=== PATIENT | male | born 1965 | race Caucasian/White ===

== ENCOUNTER 2016-08-25 16:45 | Emergency (ER) | payer OTHER ==
[~2016-08-25] VITALS: Ht 182.9 cm; Wt 100.0 kg
[2016-08-25 16:46] VITALS: BP 170/92; PULSE 73; RESP 14; TEMP 98.1; O2SAT 98
[2016-08-25 22:52] VITALS: BP 199/98; PULSE 65; RESP 18; O2SAT 100
[2016-08-25] MEDS ORDERED: DOXA1TAB35 PO (22:58)
[2016-08-25] MEDS ORDERED: POTA10TA8 PO (22:58)
[2016-08-25] MEDS ORDERED: AMAN100C18 PO (22:58)
[2016-08-25] MEDS ORDERED: LISI-515 PO (22:58)
[2016-08-25] MEDS ORDERED: METF500T PO (22:58)
[2016-08-25] MEDS ORDERED: GLIP5TAB8 PO (22:58)
[2016-08-25] MEDS ORDERED: SERT-132 PO (22:58)
[2016-08-25] MEDS ORDERED: ACETAMINOPHEN 500 MG CPLT PO ONE (23:30)
[2016-08-25 23:56] LABS: AUTOMATED NEUTROPHIL # 4.4 TH/MM3 (1.8-7.7); BASOPHIL # 0.1 TH/MM3 (0-0.2); BASOPHIL % 1.3 % (0.0-2.0); EOSINOPHIL # 0.4 TH/MM3 (0-0.4); EOSINOPHIL % 5.7 % (0.0-4.0); HEMATOCRIT 39.9 % (39.0-51.0); HEMO FLAGS DIFF FINAL; LYMPH % 28.6 % (9.0-44.0); LYMPHOCYTE # 2.2 TH/MM3 (1.0-4.8); MEAN CELL VOLUME 81.8 FL (80.0-100.0); MEAN CORPUSCULAR HEMOGLOBIN 28.3 PG (27.0-34.0); MEAN CORPUSCULAR HGB CONC 34.6 % (32.0-36.0); MONO % 7.3 % (0.0-8.0); NEUT % 57.1 % (16.0-70.0); PLATELET COUNT 242 TH/MM3 (150-450); RED BLOOD COUNT 4.88 MIL/MM3 (4.50-5.90); RED CELL DISTRIBUTION WIDTH 14.5 % (11.6-17.2); WHITE BLOOD COUNT 7.7 TH/MM3 (4.0-11.0)
[2016-08-26 00:10] LABS: ALT (GPT) 36 U/L (12-78); ANION GAP 7 MEQ/L (5-15); AST (GOT) 17 U/L (15-37); BICARBONATE 28.8 MEQ/L (21.0-32.0); BLOOD UREA NITROGEN 13 MG/DL (7-18); CHLORIDE 104 MEQ/L (98-107); GLOMERULAR FILTRATION RATE 84 ML/MIN (>89); POTASSIUM 3.5 MEQ/L (3.5-5.1); SODIUM (NA) 140 MEQ/L (136-145)
[2016-08-26 00:12] LABS: ALKALINE PHOSPHATASE 124 U/L (45-117); TOTAL BILIRUBIN ADULT 0.3 MG/DL (0.2-1.0)
[2016-08-26] MEDS ORDERED: CLINDAMYCIN INJ 600 MG in SODIUM CHLORIDE 0.9% INJ 100 ML IV ONE (00:30)
--- NOTE | 2016-08-26 00:35 | RADRPT ---
EXAM DATE/TIME: 08/25/2016 23:47 [place] COMPARISON: No previous studies available for comparison. INDICATIONS : Patient complains of pain in 2nd-5th MTPJs. Also complains of some pain in 5th digit. No known injury . MEDICAL HISTORY : None. SURGICAL HISTORY : None. ENCOUNTER: Initial ACUITY: 1 day PAIN SCORE: 3/10 LOCATION: Right Foot FINDINGS: Two view examination of the right foot demonstrates no soft tissue swelling, dislocation, or fracture . The calcaneus is intact. Moderate-sized retrocalcaneal spur. Bony mineralization is normal. CONCLUSION: Negative exam other than prominent retrocalcaneal spur. Rico Spring MD on August 26, 2016 at 0:33 Board Certified Radiologist. This report was verified electronically.
[2016-08-26] MEDS ORDERED: CLIN1CAP6 PO (00:43)
--- NOTE | 2016-08-26 00:44 | PD ---
HPI Chief Complaint: Skin Problem Time Seen by Provider: 23:21 Travel History International Travel<30 days: No Contact w/Intl Traveler<30days: No Traveled to known affect area: No History of Present Illness HPI This is a 51-year-old male who presents to the emergency department with a history of diabetes with one week of pain and redness involving his right foot mostly around his toes. He went to the [facility] today and was sent here by the nurse for concern for an infection. He denies any fevers or chills. He's been taking Tylenol for pain and it helps for about 2 hours and then pain worsens. It has become difficult for him to walk on his foot. He doesn't follow with the venereal disease investigator. [facility] Past Medical History Depression: Yes Cardiovascular Problems: Yes (HTN) Diabetes: Yes Patient Takes Glucophage: Yes Diminished Hearing: No Hypertension: Yes Social History Alcohol Use: Yes (RARELY) Tobacco Use: No Substance Use: No Allergies-Medications (Allergen,Severity, Reaction): Coded Allergies: No Known Allergies (Unverified , 08/25/16) Reported Meds & Prescriptions Reported Meds & Active Scripts Active Reported Sertraline (Sertraline HCl) 50 Mg Tab 75 Mg PO DAILY Potassium Chloride CR (Potassium Chloride) 10 Meq Tab 10 Meq PO DAILY Metformin (Metformin HCl) 500 Mg Tab 500 Mg PO DAILY With a meal Lisinopril 20 Mg Tab 20 Mg PO DAILY Glipizide 5 Mg Tab 5 Mg PO BIDAC Take 30 minutes before a meal Doxazosin (Doxazosin Mesylate) 2 Mg Tab 2 Mg PO BID Amantadine (Amantadine HCl) 100 Mg Cap 100 Mg PO BID Review of Systems Except as stated in HPI: all other systems reviewed are Neg Physical Exam Narrative GENERAL:Well appearing, no acute distress SKIN: Erythema and warmth of the distal base of the right foot including the first and third toes with no obvious ulceration, abscess or drainage. HEAD: Atraumatic. Normocephalic. EYES: Pupils equal and round. No injection or drainage. ENT: Moist mucous membranes NECK: Trachea midline. CARDIOVASCULAR: Regular rate and rhythm. No murmur appreciated. RESPIRATORY: Clear to auscultation. Breath sounds equal bilaterally. GASTROINTESTINAL: Abdomen soft, non-tender, nondistended. MUSCULOSKELETAL: No obvious deformities. NEUROLOGICAL: Awake and alert. No obvious cranial nerve deficits. Moving all extremities. PSYCHIATRIC: Appropriate mood and affect; insight and judgment normal. Data Data Last Documented VS Vital Signs Date Time Temp Pulse Resp B/P Pulse Ox O2 Delivery O2 Flow Rate FiO2 08/25/16 22:52 65 18 199/98 100 Room Air 08/25/16 16:46 98.1 Orders Complete Blood Count With Diff (08/25/16 23:27) Comprehensive Metabolic Panel (08/25/16 23:27) ^ Insert Iv (08/25/16 23:27) [place] Sedimentation Rate (08/25/16 23:27) C-Reactive Protein (Crp) (08/25/16 23:27) Foot, Limited (2vws) (08/25/16 ) Acetaminophen (Tylenol) (08/25/16 23:30) [place] Sedimentation Rate (08/26/16 00:06) Clindamycin Inj (Cleocin Inj) (08/26/16 00:30) Labs Laboratory Tests Test 08/25/16 23:40 White Blood Count 7.7 TH/MM3 Red Blood Count 4.88 MIL/MM3 Hemoglobin 13.8 GM/DL Hematocrit 39.9 % Mean Corpuscular Volume 81.8 FL Mean Corpuscular Hemoglobin 28.3 PG Mean Corpuscular Hemoglobin 34.6 % Concent Red Cell Distribution Width 14.5 % Platelet Count 242 TH/MM3 Mean Platelet Volume 6.5 FL Neutrophils (%) (Auto) 57.1 % Lymphocytes (%) (Auto) 28.6 % Monocytes (%) (Auto) 7.3 % Eosinophils (%) (Auto) 5.7 % Basophils (%) (Auto) 1.3 % Neutrophils # (Auto) 4.4 TH/MM3 Lymphocytes # (Auto) 2.2 TH/MM3 Monocytes # (Auto) 0.6 TH/MM3 Eosinophils # (Auto) 0.4 TH/MM3 Basophils # (Auto) 0.1 TH/MM3 CBC Comment DIFF FINAL Differential Comment Sodium Level 140 MEQ/L Potassium Level 3.5 MEQ/L Chloride Level 104 MEQ/L Carbon Dioxide Level 28.8 MEQ/L Anion Gap 7 MEQ/L Blood Urea Nitrogen 13 MG/DL Creatinine 0.94 MG/DL Estimat Glomerular Filtration 84 ML/MIN Rate Random Glucose 158 MG/DL Calcium Level 8.6 MG/DL Total Bilirubin 0.3 MG/DL Aspartate Amino Transf 17 U/L (AST/SGOT) Alanine Aminotransferase 36 U/L (ALT/SGPT) Alkaline Phosphatase 124 U/L C-Reactive Protein 1.40 MG/DL Total Protein 7.8 GM/DL Albumin 3.5 GM/DL MDM Medical Decision Making Medical Screen Exam Complete: Yes Emergency Medical Condition: Yes Interpretation(s) Afebrile, no tachycardia, hypertensive No leukocytosis 57% neutrophils CRP is 1.4 Differential Diagnosis Diabetic foot infection, cellulitis, abscess, sepsis, osteomyelitis Narrative Course This is a 51-year-old male who presents to the emergency department with warmth and swelling of his right foot in the setting of a history of diabetes. He has evidence of a foot infection on exam with no obvious abscess or deep ulcer. He is nontoxic appearing and afebrile. CRP is slightly elevated but his white blood cell count is normal and he has a normal percentage of neutrophils. X- ray demonstrates no sign of osteomyelitis. I think the patient is appropriate for outpatient therapy at this time. If his infection worsens he agrees to return to the emergency department at which time we'll consider admitting him for IV antibiotics. He was given a referral to podiatry Diagnosis Primary Impression: Diabetic infection of right foot Referrals: Ham Major DPM Patient Instructions: General Instructions Additional Instructions: If you develop fevers, chills, worsening redness or swelling of your foot or severe pain return to the emergency room. Follow-up with the venereal disease investigator as soon as possible. Complete your course of antibiotics as prescribed. Med/Other Pt SpecificInfo: Prescription(s) given Scripts Clindamycin 300 Mg [id number] Mg PO TID 10 Days Prov:Dalila Coppola MD 08/26/16 Disposition: 01 DISCHARGE HOME Condition: Stable Dalila Coppola MD Aug 26, 2016 00:44
== END 2016-08-26 01:56 | disposition home or self-care (01) ==
LOC: NEPA 16:45
DX: E13.69 Other specified diabetes mellitus with other specified complication (principal); L08.9 Local infection of the skin and subcutaneous tissue, unspecified; M79.671 Pain in right foot; I10 Essential (primary) hypertension; D72.829 Elevated white blood cell count, unspecified
CPT/HCPCS: 73620; 80053; 85025; 85652; 86140; 99283